=== PATIENT | male | born 1975 | race Caucasian/White ===

== ENCOUNTER 2019-09-18 16:36 | Emergency (ER) | payer BC, SELFPAY ==
[2019-09-18] VITALS (8 sets, daily range): BP systolic 102–145; BP diastolic 60–96; PULSE 66–92; RESP 15–25; TEMP 36.6; O2SAT 96–100; BMI 21.9
--- NOTE | 2019-09-18 16:50 | RAD_ITS ---
We are attempting to reach an attending provider to discuss findings. An addendum with communication details will be sent when the communication is complete. STUDY: X-RAY CHEST REASON FOR EXAM: Male, 43 years old. FELL OUT OF A TREE TECHNIQUE: Single AP portable view of the chest. COMPARISON: None. FINDINGS: There is a moderate right pneumothorax. No pleural effusion. Lungs are otherwise clear. Normal size heart. Normal mediastinum and danyel. Normal visualized pulmonary arteries. Normal visualized aortic arch and descending thoracic aorta. Acute, nondisplaced fractures of the right sixth, seventh, eighth, and ninth ribs are noted laterally. Soft tissues and bony structures are otherwise unremarkable. RAD/Chest 1 View (Portable) IMPRESSION: 1. Moderate size right pneumothorax. Appropriate consultation for chest tube placement as clinically warranted. 2. Multiple right rib fractures. Electronically Signed: Blanche Hodge MD at 17:38 EDT Tel , Service support ,
--- NOTE | 2019-09-18 16:55 | EKG12_ITS ---
Test Reason : FALL Blood Pressure : / mmHG Vent. Rate : 079 BPM Atrial Rate : 079 BPM P-R Int : 144 ms QRS Dur : 076 ms QT Int : 372 ms P-R-T Axes : 078 060 060 degrees QTc Int : 426 ms Normal sinus rhythm Normal ECG Confirmed by ANGIE DOWNING ([id number]), sound editor SAM AMBRIZ ([id number]) on 09/20/2019 2:05:53 PM Referred By: LISA Confirmed By:ANGIE DOWNING
--- NOTE | 2019-09-18 16:56 | CT_ITS ---
STUDY: CT BRAIN WITHOUT CONTRAST REASON FOR EXAM: Male, 43 years old. FALL FROM TREE 10'',PT SIDED CHEST PAIN WITH SOB RADIATION DOSAGE (If Supplied By Facility): CTDIvol = ( 44.99 ) mGy, DLP = ( 812.98 ) mGycm TECHNIQUE: Transaxial CT imaging of the brain was performed without administration of intravenous contrast material. Individualized dose optimization techniques were used for this CT. COMPARISON: No relevant priors. FINDINGS: Normal soft tissue structures. Normal calvarium. Normal size ventricles and extra-axial spaces for the patient''s age. Normal white matter tracts of the cerebral hemispheres. Normal basal ganglia and thalami. Normal brainstem. Normal cerebellum. There is no intracranial hemorrhage. There are no findings of an acute ischemic infarction. Trace mucosal thickening in the left maxillary sinus. CT/Brain/Head without Contrast IMPRESSION: 1. Trace chronic sinusitis, otherwise negative study. Electronically Signed: Blanche Hodge MD at 19:14 EDT Tel , Service support ,
--- NOTE | 2019-09-18 16:56 | CT_ITS ---
STUDY: CT CHEST WITH CONTRAST REASON FOR EXAM: Male, 43 years old. FELL FROM TREE 10'',RT SIDED CHEST PAIN WITH SOB,CHEST TUBE WAS INSERTED RADIATION DOSAGE (If Supplied By Facility): CTDIvol = ( 12.00 ) mGy, DLP = ( 1053.63 ) mGycm TECHNIQUE: Transaxial imaging was performed following intravenous administration of IV 100mL Isovue-370. Individualized dose optimization techniques were used for this CT. COMPARISON: None. FINDINGS: Normal heart size. No pericardial effusion. The aorta is normal in caliber. No aneurysm or dissection. There is no mediastinal mass or adenopathy. No hematoma. There is no pleural effusion. Trace right pneumothorax. Right-sided chest tube terminates in the pleural space anterolaterally. Mild right base atelectasis. The lungs are otherwise clear. Acute nondisplaced fractures of the right sixth through ninth ribs. Bony structures are otherwise unremarkable. CT/Chest WITH Contrast IMPRESSION: 1. Trace right pneumothorax with chest tube in place. 2. Acute right rib fractures. Electronically Signed: Blanche Hodge MD at 19:45 EDT Tel , Service support ,
--- NOTE | 2019-09-18 16:56 | CT_ITS ---
STUDY: CT ABDOMEN AND PELVIS WITH CONTRAST REASON FOR EXAM: Male, 43 years old. FELL FROM TREE 10'',RT SIDED PAIN,CHEST TUBE INSERTED RT SIDE RADIATION DOSAGE (If Supplied By Facility): CTDIvol = ( 12.00 ) mGy, DLP = ( 1053.63 ) mGycm TECHNIQUE: Transaxial images were obtained from the dome of the diaphragm to the symphysis pubis without oral contrast. IV 100mL Isovue-370 was administered. Sagittal and coronal images were reconstructed. Individualized dose optimization techniques were used for this CT. COMPARISON: None. FINDINGS: Lung bases are clear. Heart size is normal. There is no solid organ injury. The liver is unremarkable. The gallbladder is unremarkable. The spleen and pancreas are unremarkable. The adrenal glands are normal. Lower pole left renal cyst measures 3.9 cm. Additional subcentimeter low-attenuation lesions in the kidneys bilaterally are too small to characterize. The kidneys are otherwise unremarkable. No stones or hydronephrosis. The aorta is normal in caliber. There is no free fluid, free air, or organized collection. No bowel obstruction or inflammatory change. Normal appendix. Urinary bladder is unremarkable. Normal abdominal wall. Normal osseous structures. CT/Abdomen/Pelvis WITH Contrast IMPRESSION: 1. No acute findings. No evidence of trauma. 2. Left renal cyst and additional hypodensities too small to characterize. Electronically Signed: Blanche Hodge MD at 19:57 EDT Tel , Service support ,
--- NOTE | 2019-09-18 16:56 | CT_ITS ---
STUDY: CT CERVICAL SPINE WITHOUT CONTRAST REASON FOR EXAM: Male, 43 years old. FALL FROM TREE 10'',RT SIDED PAIN RADIATION DOSAGE (If Supplied By Facility): CTDIvol = ( 22.94 ) mGy, DLP = ( 551.37 ) mGycm TECHNIQUE: High resolution transaxial imaging was performed without contrast material. Sagittal and coronal images were reconstructed. Individualized dose optimization techniques were used for this CT. COMPARISON: None FINDINGS: Normal craniovertebral junction. Normal anterior atlantoaxial articulation. Normal odontoid process. Normal cervical lordosis. Normal vertebral bodies and posterior osseous elements. C2-3: Normal endplates. Normal disc height and morphology. Normal central canal. Mild right foraminal encroachment due to uncinate hypertrophy. C3-4: Normal endplates. Normal disc height and morphology. Normal central canal and intervertebral neuroforamina. C4-5: Normal endplates. Normal disc height and morphology. Normal central canal and intervertebral neuroforamina. C5-6: Normal endplates. Normal disc height and morphology. Normal central canal and intervertebral neuroforamina. C6-7: Normal endplates. Mild disc space narrowing. Normal central canal. Mild foraminal stenosis due to uncinate hypertrophy. C7-T1: Normal endplates. Normal disc height and morphology. Normal central canal. Mild foraminal encroachment due to uncinate hypertrophy. Normal visualized soft tissue structures. Small right apical pneumothorax. Chest tube is identified on the director of business operations film. CT/Spine Cervical without Contras IMPRESSION: 1. No evidence of trauma. 2. Mild degenerative changes of the cervical spine. 3. Right apical pneumothorax, previously reported. Electronically Signed: Blanche Hodge MD at 19:36 EDT Tel , Service support ,
[2019-09-18] MEDS: fentaNYL 100 MCG/2 ML Ampul IV (17:00)
[2019-09-18 17:04] LABS: Absolute Lymphocyte Count 3.14 X10^3/uL (0.83-4.51); Basophil# 0.05 X10^3/uL; Basophil% 0.6 % (0-1); Eosinophil# 0.35 X10^3/uL; Eosinophils% 4.3 % (0-5); Hematocrit 46.5 % (40-54); Hemoglobin 15.6 g/dL (13.0-16.5); Lymphocyte # 3.14 X10^3/ul (4.0); Lymphocyte % 38.4 % (19-41); Mean Corp Hgb Conc 33.5 g/dL (32-36); Mean Corpuscular Volume 92.3 fL (80-94); Monocyte# 0.65 X10^3/uL; Monocyte% 7.9 % (0-10); NRBC Flagged by Analyzer 0 % (0-5); Neutrophil # 3.95 X10^3/uL (2.7-7.7); Neutrophil % 48.3 % (47-70); Platelet Count 329 K/mm3 (150-450); RBC Distribution Width CV 11.9 % (11.6-14.6); RBC Distribution Width SD 39.8 fl (35.1-43.9); Red Blood Count 5.04 M/mm3 (4.6-6.2); White Blood Count 8.2 K/mm3 (4.4-11.0)
[2019-09-18 17:13] LABS: Prothrombin Time (Protime)PT. 12.5 SECONDS (11.7-14.9)
[2019-09-18 17:14] LABS: Partial Thromboplast Time 27.9 Seconds (24.1-36.2)
[2019-09-18] MEDS: fentaNYL 100 MCG/2 ML Ampul 50 MCG IV ×2 (17:14→21:46)
[2019-09-18 17:20] LABS: AST(SGOT) 45 U/L (15-37); Alanine Aminotransfer ALT/SGPT 48 U/L (16-61); Alkaline Phosphatase 80 U/L (45-117); Anion Gap 5 (5-15); BUN 23 mg/dL (7-18); BUN/Creat Ratio 20.4 RATIO (10-20); Bilirubin, Direct 0.25 mg/dL (0.00-0.30); Calcium,Total 8.6 mg/dL (8.5-10.1); Chloride 109 mmol/L (98-107); Creatinine, Serum 1.13 mg/dL (0.70-1.30); EST Glomerular Filtration Rate 74 mL/min (>60); Est Glom Filt Rate - Afr Amer 90 mL/min (>60); Estimated Creatinine Clearance 80.92 ml/min; Globulin 3.4 g/dL (2.2-4.2); Glucose 122 mg/dL (74-106); Potassium 3.8 mmol/L (3.5-5.1); Protein, Total 7.4 g/dL (6.4-8.2); Sodium Level 139 mmol/L (136-145)
--- NOTE | 2019-09-18 17:30 | RAD_ITS ---
STUDY: X-RAY CHEST REASON FOR EXAM: Male, 43 years old. right sided chest tube placement, image 1 TECHNIQUE: Single AP portable view of the chest. COMPARISON: 4:43 PM. FINDINGS: Right-sided chest tube projects over the mediastinum. The right lung is fully expanded. Both lungs are clear. Normal size heart. Hilar and mediastinal shadows are normal. Multiple acute rib fractures are again noted on the right. RAD/Chest 1 View (Portable) IMPRESSION: Right lung is fully expanded following chest tube placement. Electronically Signed: Blanche Hodge MD at 18:49 EDT Tel , Service support ,
--- NOTE | 2019-09-18 17:32 | RAD_ITS ---
STUDY: X-RAY CHEST REASON FOR EXAM: Male, 43 years old. right sided chest tube placement, image 2 TECHNIQUE: Single AP portable view of the chest. COMPARISON: 5:29 PM. FINDINGS: Right sided chest tube is projected over the right upper lobe medially. The right lung remains fully expanded. The lungs are clear bilaterally. Normal size heart. Hilar and mediastinal shadows are normal. Right rib fractures are again noted. Soft tissues and bony structures are otherwise unremarkable. RAD/Chest 1 View (Portable) IMPRESSION: Chest tube projects over the right upper lobe. Right lung is fully expanded. Electronically Signed: Blanche Hodge MD at 18:50 EDT Tel , Service support ,
[2019-09-18] MEDS: Morphine 2 MG/ML Syringe IV (17:48)
[2019-09-18] MEDS: Ondansetron 4 MG/2 ML Vial IV (17:48)
[2019-09-18 18:03] LABS: Alcohol, Blood (Medical)-Serum < 3.0 mg/dL
--- NOTE | 2019-09-18 18:04 | ED.DCSUM_ITS ---
History of Present Illness Chief Complaint: Fall Informant: Patient Narrative: 43-year-old male with no past medical history presents after fall from approximately 10 to 12 feet. Patient states that he was trimming a tree when he fell and struck a branch on his right side on the way down. States he is having difficulty breathing as well as pain in his right chest and abdomen. States that the pain is sharp and worse with inspiration. Denies any head trauma or loss of consciousness. Denies any neck pain. Patient denies any drugs or alcohol today. He is not on any chronic medication. No family history of bleeding disorders. Past Medical History - Allergies and Home Meds Allergies/Adverse Reactions: Allergies No Known Allergies Allergy (Verified 09/18/19 17:02) Primary Care Physician: Care Physician,No Primary [Primary Care Provider] - Past Medical History: None Surgical History: no surgical history Lives: Alone Smoking Status: Unknown if ever smoked Alcohol: None Drugs: None Review of Systems General: Denies: Chills, Fever, Sweats Eyes: Denies: Visual changes - bilaterally, Diplopia ENT: Denies: Rhinorrhea, Sore throat Cardiovascular: Reports: Chest pain. Denies: Palpitations Respiratory: Reports: Dyspnea. Denies: Cough, Dyspnea on exertion Gastrointestinal: Denies: Abdominal pain, Nausea, Vomiting, Diarrhea, Melena, Hematochezia Genitourinary: Denies: Dysuria, Hematuria, Frequency Musculoskeletal: Reports: Myalgias, Arthralgias, Back pain. Denies: Extremity Pain Skin: Reports: Abrasions. Denies: Rash, Wounds Neurological: Denies: Headache, Weakness, Numbness Physical Exam Vital Signs/Narrative: Vital Signs Temp Pulse Resp BP Pulse Ox 09/18/19 17:04 97.9 F 99 09/18/19 17:01 92 25 H 116/60 99 09/18/19 16:54 97.9 F 67 18 102/65 96 Inital Vital Signs reviewed: Yes General: Well nourished, Well developed, No Acute Distress Head: Normocephalic, Atraumatic Eyes: Perrl, EOMI ENT: Moist mucous membranes, No rhinorrhea Neck: Supple, Nontender, - - C collar in place. Cardiovascular: Regular rate, Regular rhythm, No murmurs Respiratory: No distress, - - Little air movement on right side. Overlying abrasions and ecchymosis. Abdomen: Soft, Nondistended, Normal bowel sounds, - - Tenderness to palpation in all four quadrants. No rigidity. Negative FAST exam. Rectal: - - strong rectal tone Back: Nontender, Normal Inspection Extremities: Nontender, No edema Skin: Normal color, No rash Neurological: Alert, Oriented x3, Cranial nerves II-XII grossly intact, Normal Strength, Normal Sensation Psychological: Normal affect, Normal Mood Diagnostic/Tx/Re-eval - Rhythm Strip Rhythm Strip: Sinus Rhythm Rate: 79 Ectopy: None - EKG Initial EKG Interpretation: Sinus Rhythm - Normal sinus rhythm at 79 bpm. WA interval of 144 ms. QTC of 426 ms. No evidence of ST elevation or depression at this time. - Medical Decision Making Patient presents in significant pain with complaints of shortness of breath. Absent breath sounds on the right. Patient was transported to trauma bay. Chest x-ray reveals a moderate pneumothorax. Patient given intravenous fentanyl to control his pain. 20 Sami chest tube was placed in a sterile fashion. X- ray shows good aeration of the lung following. Patient was given another dose of fentanyl as well as some morphine to control his pain. Evidence of multiple rib fractures. CT brain shows no intracranial process. CT chest abdomen pelvis confirms fractures in the 6 through 9 ribs. This tube in appropriate position without evidence of pneumothorax. Also has microscopic hematuria on urinalysis. Spoke with Dr. Hernandez at [facility] who is agreeable with transfer to the emergency department given the patient's need for trauma evaluation and likely admission. During the course of patient transfer chest tube is accidentally removed from the chest cavity. Immediately occlusive dressing was placed. Repeat chest x- ray shows no evidence of pneumothorax. Spoke with Dr. Waite at [facility] again who was agreeable with the patient not having another chest tube placed given there is no further pneumothorax. Patient had another suture placed in his wound and an occlusive dressing was placed after the wound was thoroughly cleansed. Patient transferred in stable condition. - Critical Care Time Critical care time (excluding procedures): 30-74 minutes, Discussing w/Patient &/or Family/Equal Opportunity Counselor, Discussing w/Consultants, Arranging Admission or Transfer, Performing Direct Patient Care at Bedside Procedures Procedure(s): Patient had evidence of moderate pneumothorax on chest x-ray. Bedside thoracostomy was performed using a 20 Sami chest tube. The patient was draped in a sterile fashion. An incision was made with 10 blade. Successful entrance into the oral cavity with curved Kellys. Bullard of air. Chest tube successfully placed with fogging of the chest tube. Chest x-ray initially shows tube is more central than I initially wanted. Chest tube was pulled back and repeat chest x-ray shows adequate placement of the chest tube with good lung aeration. Chest tube is cured with silk suturing. All was done in sterile fashion. Patient tolerated procedure well. ED Disposition - Plan for ED Patient: Diagnosis: Pneumothorax, Ribs, multiple fractures, Injury resulting from fall from height, Hematuria Referrals: Care Physician,No Primary [Primary Care Provider] -
[2019-09-18 18:15] LABS: Color, Urine Yellow (Yellow); Glucose, Dipstick Normal (Normal); Ketone-Dipstick 5 mg/dl (Negative); Leukocyte Esterase-Dipstick Negative /ul (Negative); Nitrite-Dipstick Negative (Negative); Occult Blood-Urine 250 /ul (Negative); Protein-Dipstick 30 mg/dl (Negative); Specific Gravity, Urine 1.015 (1.002-1.030); Urine Bilirubin Dipstick Negative (Negative); Urine Clarity Clear (Clear); Urine Urobilinogen Normal (Normal)
[2019-09-18 18:22] LABS: Red Blood Cells-Urine 10-25 SEEN /hpf (0-5); Squamous Epithelial Cells - UA 0-5 SEEN /hpf (0-5); White Blood Cells 0-5 SEEN /hpf (0-5)
[2019-09-18 18:23] LABS: Bacteria RARE /hpf (None Seen); Mucous, Urine RARE /hpf (<or=2+)
[2019-09-18 20:05] LABS: Probe Check PASS; Specimen Processing Control PASS
--- NOTE | 2019-09-18 21:15 | ED.RN ---
WHILE MOVING PATIENT OVER TO EMS BED. CHEST TUBE REMOVED. OCCLUSIVE DRESSING IN PLACE. DR. GONZALEZ NOTIFIED.
--- NOTE | 2019-09-18 21:38 | RAD_ITS ---
STUDY: X-RAY CHEST REASON FOR EXAM: Male, 43 years old. CHEST TUBE GOT PULLED OUT. LOOKING FOR POSSIBLE PNEUMO TECHNIQUE: Single AP portable view of the chest. COMPARISON: CT chest performed 6:37 PM. FINDINGS: No demonstrated pneumothorax. The lungs are clear. Normal size heart. Normal mediastinum and danyel. Normal visualized pulmonary arteries. Normal visualized aortic arch and descending thoracic aorta. Acute fractures of the right sixth and seventh ribs are noted. Soft tissues and bony structures are otherwise unremarkable. RAD/Chest 1 View (Portable) IMPRESSION: 1. No demonstrated pneumothorax. 2. Right rib fractures. Electronically Signed: Blanche Hodge MD at 21:51 EDT Tel , Service support ,
== END 2019-09-18 22:22 ==
LOC: ED 18:50
PROVIDERS: Emergency Provider Emergency Medicine
DX: S27.0XXA Traumatic pneumothorax, initial encounter (principal); S22.41XA Multiple fractures of ribs, right side, initial encounter for closed fracture; R31.29 Other microscopic hematuria; W14.XXXA Fall from tree, initial encounter; Y93.9 Activity, unspecified; Y92.9 Unspecified place or not applicable
CPT/HCPCS: 32551; 70450; 71045; 71260; 72125; 74177; 80048; 80076; 80320; 81001; 84484; 85025; 85610; 85730; 86850; 86900; 86901; 87635; 93005; 96361; 96374; 96375; 96376; 99285; G2023; J7030; Q9967; A4216; G0480; J2405; U0003